=== PATIENT | female | born 1965 | race Caucasian/White ===

== ENCOUNTER 2016-07-06 06:07 | Inpatient (IN) | payer OTHER ==
--- NOTE | 2016-06-30 14:54 | HP ---
DATE OF ADMISSION: 07/06/2016. DATE OF OFFICE VISIT: 06/30/2016. ATTENDING SURGEON: Dr. Ervin Zaidi. PROCEDURE: Left total knee replacement. CHIEF COMPLAINT: Left knee pain. HISTORY OF PRESENT ILLNESS: Ms. Sauceda is a 51-year-old female who presents for follow-up of left knee pain due to severe osteoarthritis. The patient has failed conservative measures and has therefore agreed to undergo a left total knee replacement with Dr. Zaidi on 07/06/2016. PAST MEDICAL HISTORY: None. PAST SURGICAL HISTORY: 1. Left knee ACL reconstruction in 1984. 2. Right knee ACL and MCL reconstruction in 1985. 3. Left knee reconstruction in 1996. MEDICATIONS: 1. Naproxen 500 mg one tab p.o. b.i.d. as needed. 2. Lunesta 1 mg p.o. as night as needed . ALLERGIES: No known drug allergies. FAMILY HISTORY: Mom breast cancer; paternal grandfather stroke. No family history of DVT or PE. SOCIAL HISTORY: Xtbru-eoh-duoh-old female with a spouse and children. She denies smoking, alcohol or illegal drug use. REVIEW OF SYSTEMS: General: Negative for fevers, chills, or night sweats. No known anesthesia problems. HEENT: Positive for history of concussion and headache. Negative for lightheadedness or syncopal episodes. Integumentary: Negative for abrasions, lesions, or open wounds. Cardiothoracic: Negative for chest pain, palpitations, edema, or hypertension. Pulmonary: Negative for shortness of breath, chronic cough, or COPD. GI: Negative for nausea, vomiting , diarrhea, constipation, or GERD. : Negative for nocturia, urinary frequency, or kidney problems. Positive for a history of UTI's. Musculoskeletal: Positive for the current complaint. Neuro: Negative for paresthesias, numbness, history of seizure, stroke or epilepsy. Endocrine: Negative for diabetes or thyroid issues. Hematologic: Negative for easy bruising, anemia, excessive bleeding or history of DVT. Infectious Disease: Negative for history of MRSA, hep C, or HIV. PHYSICAL EXAMINATION GENERAL: Well-developed, well-nourished, 51-year-old female in no acute distress. VITAL SIGNS: Height 61, weight 125, BMI 23.6. Pulse 77, blood pressure 101/70. HEENT: Normocephalic, atraumatic. PERRLA. Throat clear. NECK: Supple. CARDIO: Regular rate and rhythm, S1, S2. No murmurs, gallops, or rubs. No edema. PULMONARY: Lungs clear to auscultation bilaterally. No wheezes, rhonchi or rales. ABDOMEN: Positive bowel sounds, soft, nontender. MUSCULOSKELETAL: Left lower extremity: The skin is intact. Mild effusion. Flexion to 0 degrees, extension to 110 degrees. Tenderness to palpation over the medial joint line. No swelling or tenderness over the calf. +2 dorsalis pedis pulse. Sensation intact to light touch distally. NEUROLOGIC: Alert and oriented times three. Cranial nerves grossly intact. Sensation intact to light touch. STUDIES: Multiple view x-rays of the left knee reveal [id number] arthritis with sclerosis, osteophyte formation and varus deformity. X-rays also revealed patellofemoral arthritis. IMPRESSION: Severe left knee osteoarthritis. PLAN: The patient is scheduled to undergo a left total knee replacement with Dr. Zaidi on 07/06/2016. She will return to the office one month postop for follow-up. Her sutures will be removed 10 to 14 days after surgery. A prescription for Percocet was e-scribed to the patient's pharmacy for postoperative pain management. The patient will take aspirin postoperatively for DVT prophylaxis. The patient was instructed to purchase a stool softener from the pharmacy, such as Colace, for prevention of constipation. VIKTORIYA BOYD [id number]/[facility] #: [id number] MASHA
[~2016-07-06 06:07] MED LIST: Buffered Lidocaine 1% SYR 3ML* 3 ML/SYR SYRINGE INTRADERM ONE
[2016-07-06] MEDS ORDERED: Buffered Lidocaine 1% SYR 3ML* 3 ML/SYR SYRINGE ONE (06:08)
[2016-07-06] MEDS ORDERED: ceFAZolin 2 GM PREMIX (*) 2 GM/50 ML BAG IVPB ONE (06:08)
[2016-07-06 06:56] LABS: Manual Entry Verification LOR0008; UR Preg Internal Control QC Line Present
[2016-07-06] MEDS ORDERED: Bupivacaine 0.5% W/EPI SDV* 30 ML VIAL ONE (07:13)
[2016-07-06] MEDS ORDERED: Midazolam* 1 MG/ML 2 ML VIAL (2 MG) ONE ×5 (07:21→12:00)
[2016-07-06] MEDS ORDERED: fentaNYL* 50 MCG/ML 2 ML VIAL (100 MCG VIAL) ONE (07:21)
[2016-07-06] MEDS ORDERED: Morphine PF AMP (0.5MG/ML)* 5 MG/10 ML AMP ONE (07:47)
[2016-07-06] MEDS ORDERED: Dexamethasone IV* 4 MG/ML 1 ML (4 MG) ONE (08:21)
[2016-07-06] MEDS ORDERED: Ketorolac INJ* 30 MG/ML 1 ML VIAL ONE ×2 (08:21→12:02)
[2016-07-06] MEDS ORDERED: Bupivacaine 0.5% SDV PF* 30 ML VIAL ONE (08:21)
[2016-07-06] MEDS ORDERED: Famotidine IV* 10 MG/ML 2 ML (20 mg) ONE ×2 (08:21→12:02)
[2016-07-06] MEDS ORDERED: diPHENhydraMINE IV* 50 MG/ML 1 ml VIAL (BENADRYL) ONE ×2 (08:21→12:00)
[2016-07-06] MEDS ORDERED: Dexmedetomidine* 200 MCG/2 ML 2 ML VIAL ONE (08:21)
[2016-07-06] MEDS ORDERED: fentaNYL* 50 MCG/ML 2 ML VIAL (100 MCG VIAL) IV PRN (09:04)
[2016-07-06] MEDS ORDERED: Ondansetron INJ* 2 MG/ML VIAL IV PRN ×3 (09:04→15:18)
[2016-07-06] MEDS ORDERED: DiMENhydriNATE IV* 50 MG/ML VIAL IV PUSH PRN (09:04)
[2016-07-06] MEDS ORDERED: oxyCODONE TAB* 5 MG TAB PO PRN (09:14)
[2016-07-06] MEDS ORDERED: Nalbuphine* 20 MG/ML 1 ML VIAL IV PRN (09:14)
[2016-07-06] MEDS ORDERED: PROCHLORPERAZINE INJ 5 MG/ML 2 ML VIAL IV PRN (09:14)
[2016-07-06] MEDS ORDERED: Naloxone* 0.4 MG/ML 1 ML VIAL IV PRN (09:14)
[2016-07-06] MEDS ORDERED: HYDROcodone/ACETAMIN 5-325 MG* 1 TAB PO PRN (09:14)
[2016-07-06] MEDS ORDERED: diPHENhydraMINE IV* 50 MG/ML 1 ml VIAL (BENADRYL) IV PRN ×2 (10:00→11:26)
[2016-07-06] MEDS ORDERED: Scopolamine 1.5 mg* PATCH TRANSDERM SCH (10:00)
[2016-07-06] MEDS ORDERED: oxyCODONE/Acetamin 5/325 MG* TAB PO PRN (11:16)
[2016-07-06] MEDS ORDERED: Acetaminophen TAB* 325 MG PO PRN (11:16)
[2016-07-06] MEDS ORDERED: Morphine INJ* 2 MG/ML 1 ML CARPUJECT IV PRN (11:26)
[2016-07-06] MEDS ORDERED: traZODone TAB* 50 MG TAB PO PRN (11:26)
[2016-07-06] MEDS ORDERED: KETAMINE HCL* 50 MG/ML 10 ML VIAL ONE (12:00)
[2016-07-06] MEDS ORDERED: Propofol* 10 MG/ML 20 ML BTL IV PUSH ONE (12:02)
[2016-07-06] MEDS ORDERED: Lidocaine 2% MPF* 2 ML VIAL ONE (12:02)
--- NOTE | 2016-07-06 12:10 | RAD ---
HISTORY: Status post left knee arthroplasty COMPARISONS: January 05, 2016 VIEWS: 2, Frontal and lateral views of the left knee FINDINGS: BONE DENSITY: Normal. BONES: The patient is status post left knee arthroplasty. There is no hardware failure or osteolysis. A metallic screw from previous ACL repair is noted in the distal femur. JOINTS: The patient is status post left knee arthroplasty ALIGNMENT: There is no dislocation. SOFT TISSUES: Unremarkable. OTHER FINDINGS: There is postsurgical change to the soft tissues. IMPRESSION: STATUS POST LEFT KNEE ARTHROPLASTY
[2016-07-06] MEDS: Acetaminophen TAB* 325 MG PO SCH ×4 (15:18→22:00)
[2016-07-06] MEDS: Ondansetron INJ* 2 MG/ML VIAL IV SCH (15:41)
[2016-07-06] MEDS: ceFAZolin 1 GM in Dextrose (*) 1 GM/50 ML BAG IVPB SCH ×2 (17:45→23:59)
[2016-07-06] MEDS: Ketorolac INJ* 30 MG/ML 1 ML VIAL IV SCH ×2 (17:47→23:57)
[2016-07-06] MEDS: Docusate CAP* 100 MG PO SCH (20:20)
[2016-07-06] MEDS: Ferrous Sulfate TAB* 325 MG PO SCH (20:20)
[2016-07-07] MEDS: oxyCODONE/Acetamin 5/325 MG* TAB PO PRN ×4 (01:44→18:41)
--- NOTE | 2016-07-07 03:01 | OP ---
DATE OF OPERATION: 07/06/16 - ROOM #[id number] DATE OF : [birth year] - AGE: 51 years. SURGICAL CARE: Left knee. SURGEON: Ervin Zaidi MD ASSISTANTS: 1. VIKTORIYA Garsia - Research Aide. 2. Francoise Hay. ANESTHESIOLOGIST: Dr. Quinn Herrera. ANESTHESIA: Spinal with Duramorph, IV sedation. PRE-OP DIAGNOSIS: Severe arthritis of the left knee following old anterior cruciate ligament surgery and trauma. POST-OP DIAGNOSIS: Severe arthritis of the left knee following old anterior cruciate ligament surgery and trauma. OPERATIVE PROCEDURE: Left knee removal of hardware and left total knee replacement. COMPONENTS UTILIZED: Horace Persona knee was utilized, a size 5 femur, a size D tibia, a 10 articular surface, and a 32 patella. COMPLICATIONS: There were no complications. DRAINS: Two blood collection drains, left knee at the end of the case. BLOOD LOSS: 250 mL. REPLACEMENT: Crystalloid fluid. OPERATIVE INDICATIONS: Severe arthritis of the left knee that is deformity varus and no longer responsive to nonoperative care. DESCRIPTION OF PROCEDURE: The patient was brought to the operating room, placed on the operating table in the supine position following the administration of spinal anesthesia done in the sitting position. She was returned to the supine position. A Giles catheter was inserted. The left proximal thigh was wrapped with a tourniquet and then the leg was prepped from the tourniquet to the tip to the toes and this prep was done after a preliminary chlorhexidine prep of the knee, thigh, and leg. After prepping, draping, and sealing off; we did our universal protocol time-out, confirming Trinidad Komal and a plan for left total knee replacement. We all agreed and we proceeded. The two of her previous skin incisions were utilized, and the first was in the midline anteriorly superior to the patella. This was connected going to her old medial parapatellar incision going transversely just above the superior pole of the patella and then the old incision was used medial parapatellar down to the medial aspect of the tibial tubercle. The tourniquet was not utilized until the cleanup and cementing phase of the case. After division of skin and subcutaneous, the quad tendon was exposed. The quad tendon was divided at the junction of the rectus femoris and vastus medialis staying as close to vastus muscle as possible to allow nice healing. Medial parapatellar and then the anteromedial tissues on the tibia were divided down to the bone just medial to the tibial tubercle. The patella was made so that could be everted. The anteromedial soft tissues on the tibia were elevated subperiosteally going around to the deep MCL and into the posterior medial corner of the knee. This included the old ACL graft site and the jericho that is easily seen on the x-rays. The staple was removed with a Chavez staple inserted without difficulty and then the old ACL graft site was exposed carefully and then the rest of the tibia was exposed. The MCL, I felt, was in good condition from preoperative exam under anesthesia and the knee had no flexion contracture. The distal anterior femur was exposed subperiosteally for referencing and measuring and here there was some old ACL graft stump just superior to the lateral trochlea and this was excised in the coarse of the case and the femoral hole in this area was grafted at the end of the case. The lateral meniscus was carefully excised. The infrapatellar graft pad was carefully excised. The patient had [id number] medial arthritis, medial femoral condyle and medial tibial plateau, large osteophytes, medial femoral condyle, medial tibial plateau, lateral femoral condyle, and intercondylar. The remains of the anterior horn medial meniscus were carefully excised and careful hemostasis was achieved throughout the case utilizing electrocautery. The ACL and PCL were then carefully uplifted from their femoral origins. This included the ACL entry graft on to the end of the joint on the medial aspect of the lateral endochondral notch and the old graft had been supplemented with nonabsorbable suture strands. The PCL was carefully excised, great care was taken while working in the posterior knee. Once this initial exposure had been obtained and the proximal tibial cut was made, first our goal on the tibial cut was to have the tibial surface that would be perpendicular to the long axis of the tibia, removing just a millimeter to a bone from the low point on the medial side and a centimeter from the lateral side. After this cut was completed, then the femoral intramedullary drill was utilized. The femoral canal was suctioned to the discourage embolization. The distal femoral cut was then made with the Horace cutting guide at 0 and 6 degrees of valgus and these cuts were completed. The femur was then measured and the 5 seemed to be the most appropriate, a 5 was chosen. The 5 cutting block was applied and the anterior and posterior cuts were made and the 2 chamfering cuts were made. We then finished removal of the posterior horn medial meniscus, the PCL, posterior horn, and lateral meniscus and we had excellent ligamentous balance and extension and 90 degrees flexion with a 10-mm block. The femur was then completed with the intracondylar cut off. The tibia was then completed for a size 5. The tibia was measured for a 5. The 5 plate was put on the tibia. We then hit the tibial interference metal screw and this was carefully removed on the joint side by using a small osteotome and a small pair of pliers and the screw was advanced up to the tibial surface and removed without difficulty. The drill for the tibial extension then went down without difficulty and the tibial ACL graft site. The graft was removed including the foreign tissue and made ready for bone grafting. The knee was then articulated and extended with the D tibia, 10 articular surface, and the 5 femur with full knee extensions, stable ligaments and extension, and stable ligaments at 90 degrees of flexion. The patella was cut flat. A 32 was chosen, 3 drill holes were made, and these were under cut. The femoral canal was cleaned x5 with saline, suctioned empty, and bone graft inserted. The lateral femoral condyle ACL graft root was also filled with bone graft, which was impacted from the notch site. I visualized the screw in the femoral tunnel, it was distant from the articular side of the joint. It was not loose and I elected to leave it in position. A lateral release was not necessary. The leg was then exsanguinated. The tourniquet elevated to 275. The knee was cleaned in extension with pulsed saline 3 L and then dried. We checked for vessel leakage in the lateral joint line for the lateral geniculate and hemostasis carefully achieved. The knee was then articulated. Retractor was put in the position and all the bony surfaces were cleaned with pulse saline once again and then dried. The cement was mixed and the components were cemented into position patella, followed by tibia, and followed by femur, each was impacted. Excess cement was removed and the knee was articulated and extended during the final hardening. The tourniquet was then deflated. hemostasis checked and achieved utilizing electrocautery. We checked posteriorly for bleeding points and retained cement. All foreign bodies were removed and we had irrigated several times during closure with saline. The periarticular capsular tissues were infiltrated with Marcaine 0.5% with epinephrine posteromedially and medially and a little bit laterally. Bone grafting was then completed on the femoral tunnel superolaterally and on the tibial tunnel anteromedially and then the closure proceeded with #1 Polysorb [id number] fashion on the quad tendon and medial retinaculum. A 0 Polysorb was utilized distal to that and then the superficial subcutaneously closed with interrupted 3-0 Polysorb and jericho on the skin and a couple of Prolene sutures on the superior part of the incision. Everything was irrigated again with saline, then washed and dried. Betadine-soaked release was placed over the skin incision and over the drains, which were brought out laterally and then sterile gauze, sterile Webril, cryotherapy cuff, ABD pads, and then a 6 -inch YAZMIN bandage loosely applied. The posterior tibial pulse was 2+ at the end of the case. The patient was returned to the recovery room in stable and satisfactory condition having tolerated the procedure very well. Also during closure, the knee was extended fully and flexed well past 130 degrees multiple times. The patient returned to the recovery room in stable and satisfactory condition having tolerated the procedure very well. CC: Josesito Justin MD at [facility]* [id number]/[facility] #: [id number] MTDD
[2016-07-07] MEDS: Ketorolac INJ* 30 MG/ML 1 ML VIAL IV SCH (05:40)
[2016-07-07 06:24] LABS: Hematocrit 28 % (35-47); Hemoglobin 9.2 g/dl (12.0-16.0)
[2016-07-07 06:46] LABS: BUN/Creatinine Ratio 19.6 (8-20); Calcium 8.3 mg/dL (8.6-10.3); EGFR African American 163.5 (>60); EGFR Non-African American 127.1 (>60); Potassium 3.9 mmol/L (3.5-5.0)
[2016-07-07] MEDS: ceFAZolin 1 GM in Dextrose (*) 1 GM/50 ML BAG IVPB SCH (08:22)
[2016-07-07] MEDS: Ferrous Sulfate TAB* 325 MG PO SCH ×2 (08:24→21:36)
[2016-07-07] MEDS: Docusate CAP* 100 MG PO SCH ×2 (08:24→21:36)
[2016-07-07] MEDS: Aspirin TAB* 325 MG PO SCH (08:24)
[2016-07-07] MEDS: Vitamin THERAPEUTIC TAB PO SCH (08:24)
[2016-07-07] MEDS: oxyCODONE TAB* 5 MG TAB PO PRN ×2 (08:24→21:40)
[2016-07-07 17:50] LABS: Hematocrit 29 % (35-47); Hemoglobin 9.4 g/dl (12.0-16.0)
[2016-07-07] MEDS: Magnesium Hydroxide LIQ* 30 ML UDC PO PRN (18:41)
[2016-07-08] MEDS: oxyCODONE/Acetamin 5/325 MG* TAB PO PRN ×5 (01:35→23:27)
[2016-07-08 06:10] LABS: Hematocrit 27 % (35-47)
[2016-07-08] MEDS: Ferrous Sulfate TAB* 325 MG PO SCH ×2 (08:39→20:29)
[2016-07-08] MEDS: Magnesium Hydroxide LIQ* 30 ML UDC PO PRN ×2 (08:40→17:47)
[2016-07-08] MEDS: Docusate CAP* 100 MG PO SCH ×2 (08:40→20:29)
[2016-07-08] MEDS: Aspirin TAB* 325 MG PO SCH (08:40)
[2016-07-08] MEDS: Vitamin THERAPEUTIC TAB PO SCH (08:40)
[2016-07-09 07:23] LABS: Hematocrit 29 % (35-47); Hemoglobin 9.4 g/dl (12.0-16.0)
[2016-07-09] MEDS: Docusate CAP* 100 MG PO SCH (07:53)
[2016-07-09] MEDS: oxyCODONE/Acetamin 5/325 MG* TAB PO PRN ×2 (07:53→12:00)
[2016-07-09] MEDS: Vitamin THERAPEUTIC TAB PO SCH (07:53)
[2016-07-09] MEDS: Aspirin TAB* 325 MG PO SCH (07:54)
[2016-07-09] MEDS: Ferrous Sulfate TAB* 325 MG PO SCH (07:54)
[2016-07-09] MEDS: Magnesium Hydroxide LIQ* 30 ML UDC PO PRN (07:57)
[2016-07-09 08:04] VITALS: BP 116/74
--- NOTE | 2016-07-09 09:43 | PN ---
Progress Note - Progress Note SOAP: Subjective: Pt is doing well. She states that her pain is well controlled. She is doing well walking with physical therapy. She denies calf pain or swelling. No CP or SOB. Objective: Physical exam: General- WDWN 51 y/o F in NAD LLE- incision is clean and dry with no signs of infection. [place] intact. Dressing changed. +PF/DF at ankle. No calf tenderness. +2 DP pulse. sensation intact Vital Signs Temp Pulse Resp BP Pulse Ox 100.5 F 82 16 116/74 100 07/09/16 07:29 07/09/16 07:29 07/09/16 07:53 07/09/16 07:29 07/09/16 07:29 Laboratory Results - last 24 hr 07/09/16 06:41 Hgb 9.4 L Hct 29 L Assessment: POD #3 Left knee hardware removal and Left total knee replacement Plan: Discharge home with VNS today Dressing was changed today Cont PT Left leg WBAT Aspirin for DVT prophylaxis percocet for pain colace for constipation F/U 10-[address] Zaidi
[2016-07-09] MEDS ORDERED: Scopolamine PATCH Remove* 1 NOTE MISC PATCH OFF SCH (10:00)
--- NOTE | 2016-07-10 01:32 | DS ---
DISCHARGE SUMMARY: DATE OF ADMISSION: 07/06/16 DATE OF DISCHARGE: 07/09/16 PROVIDER: Ervin Zaidi MD ADMITTING DIAGNOSIS: Left knee severe osteoarthritis. SECONDARY DIAGNOSIS: None. PROCEDURE: Left total knee replacement and removal of hardware. CONSULTATIONS: Physical Therapy and Occupational Therapy. HISTORY OF PRESENT ILLNESS: Ms. Sauceda is a 51-year-old female who presents for left knee pain due to severe left knee osteoarthritis. She failed conservative measures, therefore agreed to undergo a left total knee replacement with Dr. Zaidi on 07/06/16. HOSPITAL COURSE: Ms. Sauceda was admitted to [facility] on 07/06/16. She underwent a left total knee replacement with removal of hardware. Postoperatively, she recovered in the Short-Stay Surgical Unit. On postop day 1 , her Giles was removed and she is able to urinate on her own. Her diet was advanced without difficulty and her pain was controlled with p.o. Percocet and she was restarted on her home medication. Her labs and vitals remained stable. She is able to weightbear as tolerated on the left lower extremity. She advanced appropriately with Physical Therapy and Occupational Therapy. Her DVT prophylaxis was managed with aspirin. Postop day 3, she was orthopedically and medically stable for discharge to home with nursing services. DISCHARGE CONDITION: Stable. DISCHARGE MEDICATIONS: Home medications continue to include: 1. Naproxen 500 mg 1 by mouth twice a day with meals. 2. Lunesta 1 mg by mouth at bedtime as needed. NEW MEDICATIONS: Started at discharge to include: 1. Aspirin 325 mg 1 by mouth daily. 2. Colace 100 mg p.o. twice a day as needed for constipation. 3. Percocet 5/325 mg 1 to 2 tabs q.4-6 hours as needed for pain. DISCHARGE INSTRUCTIONS: The patient is discharged to home today with visiting nursing services. She may shower postop day 4. She is not to submerge the wound in water. No baths, hot tubs, or pool. Her nurses may change the dressings daily and redress with Betadine-soaked Telfa gauze, Kerlix, and YAZMIN. Comstock will be removed in 10 to 14 days postop. Left leg weightbearing as tolerated. Activity as directed by Physical Therapy. She is to go to the ER if she develops chest pain, shortness of breath, calf pain, swelling, or fever greater than 101.5. She is to call the office with any questions or concerns. She will follow up with Dr. Zaidi in 4 to 6 weeks. She will take Percocet as needed for pain, Colace for constipation, and aspirin 325 mg daily x3 weeks for DVT prophylaxis. VIKTORIYA BOYD [id number]/[facility] #: [id number] [facility]ITALGunjan
== END 2016-07-09 14:20 | disposition home health service (06) | DRG 470 ==
LOC: AA 06:07 → SSU 14:40
PROVIDERS: ADMIT Orthopaedic Surgery; ATTEND Orthopaedic Surgery
PROC: 0SRD0J9 Replacement of Left Knee Joint with Synthetic Substitute, Cemented, Open Approach (ICD-10-PCS; 2016-07-06)
PROC: 0SPD04Z Removal of Internal Fixation Device from Left Knee Joint, Open Approach (ICD-10-PCS; 2016-07-06)
PROC: 30233H0 Transfusion of Autologous Whole Blood into Peripheral Vein, Percutaneous Approach (ICD-10-PCS; principal; 2016-07-06 07:30)
DX: M17.12 Unilateral primary osteoarthritis, left knee (principal); D62 Acute posthemorrhagic anemia; K59.00 Constipation, unspecified; G47.00 Insomnia, unspecified; M21.162 Varus deformity, not elsewhere classified, left knee; Z82.49 Family history of ischemic heart disease and other diseases of the circulatory system; Z80.0 Family history of malignant neoplasm of digestive organs; Z80.3 Family history of malignant neoplasm of breast; Z82.3 Family history of stroke; Z87.820 Personal history of traumatic brain injury; Z87.440 Personal history of urinary (tract) infections; Z79.82 Long term (current) use of aspirin
CPT/HCPCS: 36415; 80048; 81025; 85014; 85018; 88300; 88305; 88311; 94760; A9270-GY; C1776; J0690; J1100; J1200; J1885; J2250; J2300; J2405; J2704; J3010